=== PATIENT | male | born 1955 | race Caucasian/White ===

== ENCOUNTER → 2017-06-16 | Outpatient (CLI) | payer OTHER | END | disposition home or self-care (01) | LOC: Rad HDHVI 12:37 | PROVIDERS: ATTEND Internal Medicine Cardiovascular Disease | DX: I08.8 Other rheumatic multiple valve diseases (principal); I50.33 Acute on chronic diastolic (congestive) heart failure; Z95.1 Presence of aortocoronary bypass graft | CPT/HCPCS: 93306 ==

== ENCOUNTER → 2017-07-06 | Outpatient (CLI) | payer OTHER ==
[~2017-07-06] VITALS: Ht 182.9 cm; Wt 104.3 kg
== END | disposition home or self-care (01) ==
LOC: Rad HDHVI 10:13
PROVIDERS: ATTEND Internal Medicine Cardiovascular Disease
DX: I11.0 Hypertensive heart disease with heart failure (principal); I50.33 Acute on chronic diastolic (congestive) heart failure; E78.00 Pure hypercholesterolemia, unspecified; R00.2 Palpitations
CPT/HCPCS: 78452; 93017; 96374; A9500

== ENCOUNTER → 2018-04-29 | Outpatient (CLI) | payer OTHER ==
[~2018-04-29] VITALS: Ht 182.9 cm; Wt 100.7 kg
== END | disposition home or self-care (01) ==
LOC: Rad HDHVI 09:34
PROVIDERS: ATTEND Internal Medicine Cardiovascular Disease
DX: I07.1 Rheumatic tricuspid insufficiency (principal); I37.1 Nonrheumatic pulmonary valve insufficiency; I50.33 Acute on chronic diastolic (congestive) heart failure
CPT/HCPCS: 78452; 93017; 96374; A9500

== ENCOUNTER → 2018-04-29 | Outpatient (CLI) | payer OTHER | END | disposition home or self-care (01) | LOC: Rad HDHVI 12:22 | PROVIDERS: ATTEND Internal Medicine Cardiovascular Disease | DX: I08.1 Rheumatic disorders of both mitral and tricuspid valves (principal); I50.33 Acute on chronic diastolic (congestive) heart failure | CPT/HCPCS: 93306 ==

== ENCOUNTER → 2019-02-21 | Outpatient (CLI) | payer OTHER ==
[~2019-02-21] MED LIST: ASPI-404 PO; ATO40T PO; CAR125T PO; CHOL20007 PO; GARL200T PO; LOSA50TA27 PO; SUMA50TA2 PO; TADA20TA PO; TAMS0.4C36 PO
[2019-02-21 09:00] VITALS: BP 115/62
[2019-02-21 09:30] VITALS: BP 111/65
--- NOTE | 2019-02-21 09:30 | NUR ---
Pre-Op Discharge Summary: See e-MAR for any medications given for this visit. Pre-op orders received and carried out per MD of EKG, LABS and chest xrays. Patient given a copy of EKG with instructions to go to [facility] out patient for further follow up care.
[2019-02-21 11:53] LABS: Basophils # (auto) 0.1 uL; Eosinophils # (auto) 0.1 uL; Eosinophils % (auto) 1.5 % (0.0-7.0); Hematocrit 45.6 % (41.0-53.0); Hemoglobin 15.1 g/dL (13.5-17.5); Lymphocytes # (auto) 1.3 uL; Lymphocytes % (auto) 25.4 % (10.0-50.0); Mean Corpuscular Hgb Conc. 33.1 g/dL (32.0-36.0); Mean Corpuscular Volume 93.4 fL (80.0-100.0); Monocytes # (auto) 0.5 uL; Monocytes % (auto) 10.3 % (0.0-12.0); Neutrophils # (auto) 3.1 uL; Neutrophils % (auto) 61.8 % (37.0-80.0); Nucleated Red Blood Cells % 0.1 %; Platelet Count (auto) 190 10^3/uL (140-450); Red Blood Cells 4.88 10^6/uL (4.5-5.90); Red Cell Distribution Width 12.9 % (11.8-14.3); White Blood Cell 5.1 10^3/uL (4.4-10.8)
[2019-02-21 12:04] LABS: BUN/Creatinine Ratio 22.8; Calcium 8.7 mg/dL (8.5-10.1); Potassium 3.8 mmol/L (3.5-5.1)
[2019-02-21 12:15] LABS: INR 1.07 (0.9-1.15); Partial Thromboplastin Time 27.4 sec (23.64-32.05)
== END | disposition home or self-care (01) ==
LOC: Rad HDHVI 08:49
PROVIDERS: ATTEND Internal Medicine Cardiovascular Disease
DX: Z01.812 Encounter for preprocedural laboratory examination (principal); R06.02 Shortness of breath; M47.894 Other spondylosis, thoracic region; I20.9 Angina pectoris, unspecified; Z87.891 Personal history of nicotine dependence; Z91.018 Allergy to other foods
CPT/HCPCS: 36415; 71046; 80048; 85025; 85610; 85730; 93005; G0463